=== PATIENT | male | born 1990 | race Caucasian/White ===

== ENCOUNTER 2016-11-30 15:08 | Emergency (ER) | payer OTHER ==
[~2016-11-30] VITALS: Ht 188 cm; Wt 77.1 kg
[2016-11-30 15:15] VITALS: BP 127/79
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
[2016-11-30] MEDS ORDERED: ROBAXIN-750750 M1 PO (15:59)
[2016-11-30] MEDS ORDERED: NAPROSYN500 M1 PO (15:59)
== END 2016-11-30 16:04 ==
LOC: ERH 15:08
DX: S29.012A Strain of muscle and tendon of back wall of thorax, initial encounter (principal); V43.52XA Car driver injured in collision with other type car in traffic accident, initial encounter; Y92.411 Interstate highway as the place of occurrence of the external cause